=== PATIENT | male | born 1940 | race Caucasian/White ===

== ENCOUNTER 2017-11-22 10:32 | Outpatient (CLI) | payer MEDICARE ==
--- NOTE | 2017-11-22 11:38 | RAD ---
TWO LEFT HIP: History: Degenerative joint pain. Comparison: None. FINDINGS: No significant loss of joint space height. Contour of the femoral head is maintained. No fracture. Va scular calcification. FINDINGS: No significant degenerative change. POS: [facility]
--- NOTE | 2017-11-22 12:44 | RAD ---
TWO VIEWS RIGHT HIP: History: Degenerative joint pain. Comparison: None. FINDINGS: There is mild loss of joint space height. Mild osteophyte formation. No fracture. No malalignment. Va scular calcifications are noted. IMPRESSION: Mild degenerative change. POS: [facility]
--- NOTE | 2017-11-22 12:56 | RAD ---
CERVICAL SPINE THREE VIEWS: History: Pain, disc bulges. Comparison: None. FINDINGS: Lateral view of the cervical spine in the neutral position, flexion and extension are submitted for i nterpretation. The entire cervical spine is not assessed. The C7 vertebral body as well as the cervicothoracic junct ion cannot be adequately demonstrated. There is 1.9 mm of anterolisthesis of C4 upon C5. There is mil d degenerative disc disease at C3 upon C4 and C5 upon C6. Additionally, there is moderate to severe d egenerative change of C6 upon C7. No abnormal translation of motion upon extension or flexion. IMPRESSION: Multilevel degenerative change. POS: [facility]
== END 2017-11-22 10:33 | disposition home or self-care (01) ==
LOC: TBSIIMAG 10:32
PROVIDERS: ATTEND Neurological Surgery
DX: M47.22 Other spondylosis with radiculopathy, cervical region (principal); M25.559 Pain in unspecified hip; M16.11 Unilateral primary osteoarthritis, right hip
CPT/HCPCS: 72040

== ENCOUNTER 2017-11-30 08:04 | Outpatient (CLI) | payer MEDICARE ==
--- NOTE | 2017-11-30 12:18 | MRI ---
MRI LUMBAR SPINE NONCONTRAST: History: Back pain with right leg radiculopathy. FINDINGS: The conus medullaris has a normal appearance. Vertebral body heights are maintained. There is desicca tion of the intervertebral discs. T12-L1, L1-2: Osteophytosis involves each facet. There is mild bulging of the discs. No focal disc he rniation or nerve root compression. The thecal sac and neural foramina are patent. L2-3: Minimal degenerative retrolisthesis is present. Posterior disc bulge, along with facet joint hy pertrophy and ligamentous thickening result in mild stenosis of the central canal and each neural for amen. L3-4: There is disc space narrowing and minimal degenerative retrolisthesis. Discogenic endplate jesus ges are most pronounced at this level. Posterior disc bulge along with facet joint hypertrophy and li gamentous thickening result in severe stenosis of the central canal and moderate stenosis of each mae ral foramen. L4-5: There is disc space narrowing. Posterior disc bulge, along with facet joint hypertrophy and lig amentous thickening result in severe stenosis of the central canal. There is severe right and moderat e left foraminal stenosis. L5-S1: Mild disc bulge is present. The thecal sac is patent. Degenerative changes result in mild sten osis of each neural foramen. IMPRESSION: 1. Multilevel degenerative changes throughout the lumbar spine as detailed above, including central c anal and foraminal stenosis greatest at the L3-4 and L4-5 levels. POS: [facility]
== END 2017-11-30 08:05 | disposition home or self-care (01) ==
LOC: SCSMRI 08:04
PROVIDERS: ATTEND Neurological Surgery
DX: M47.26 Other spondylosis with radiculopathy, lumbar region (principal); M99.83 Other biomechanical lesions of lumbar region
CPT/HCPCS: 72148

== ENCOUNTER 2018-06-13 07:50 | Outpatient (CLI) | payer MEDICARE ==
--- NOTE | 2018-06-13 09:15 | RAD ---
CERVICAL SPINE 3 VIEWS: COMPARISON: 11/22/17. HISTORY: Cervical radiculopathy. Status post surgery. FINDINGS: There is no prevertebral soft tissue swelling. Predental space is normal. On the open-mouth project ion, odontoid process is obscured. Lateral masses of C1 and C2 articulate appropriately. On the AP projection, there are degenerative changes in the facets. There is interval placement of an anterior fusion plate with a transvertebral screw at C4, C5, and C6 . No perihardware lucency. Disk prosthesis of C4-C5 and C5-C6. The C4-C5 prosthesis at the anterio r margin of the adjacent vertebral bodies. Previously noted anterolisthesis of C4 upon C5 is less ev ident. Currently, there appears to be 1.4 mm anterolisthesis of C4 upon C5. IMPRESSION: Cervical fusion changes as above. POS: [facility]
== END 2018-06-13 07:51 | disposition home or self-care (01) ==
LOC: TBSIIMAG 07:50
PROVIDERS: ATTEND Neurological Surgery
DX: M54.12 Radiculopathy, cervical region (principal); Z98.1 Arthrodesis status
CPT/HCPCS: 72040

== ENCOUNTER 2018-06-28 12:55 | Outpatient (CLI) | payer MEDICARE ==
--- NOTE | 2018-06-28 15:09 | CT ---
CT LUMBAR SPINE: Technique: Multiple axial tomograms were obtained through the lumbar spine with multiplanar reconstru ctions. Indication: Chronic low back pain. FINDINGS: The lumbar vertebrae maintain height and alignment. Moderate degenerative changes are seen with spurr ing from all lumbar vertebrae. Degenerative disc changes are seen at all levels of the lumbar spine. Vacuum phenomenon present throughout levels of the lumbar spine. Degenerative plate changes are most severe at L3-4 and L4-5 levels. No evidence of spondylolisthesis or spondylolysis. Normal posterior listhesis at L3-4 noted. L1-2: Broad based disc bulge flattening the thecal sac. Facet hypertrophy. Mild central canal stenosi s. L2-3: Broad based disc bulge flattens the thecal sac. Facet and ligamentous hypertrophy is prominent. Moderate central canal stenosis is present at this level. The diffuse disc bulge encroaches into the foramina bilaterally. L3-4: Degenerative disc and endplate change as noted above. Disc bulge and posterior hypertrophic celia nges are present compressing the thecal sac. Facet and ligamentous hypertrophy is prominent. Moderate to severe central canal stenosis. Bilateral foraminal stenosis is present. L4-5: Diffuse disc bulge is present. Facet and ligamentous hypertrophy is prominent. Severe central c anal stenosis. Bilateral foraminal stenosis secondary to disc bulge and hypertrophic change. L5-S1: Mild broad based disc bulge abuts both traversing S1 nerve roots. Facet hypertrophy is promine nt. No significant central canal stenosis due to congenitially smaller thecal sac. Mild foraminal enc roachment due to disc bulge and hypertrophic change. IMPRESSION: 1. Central canal and foraminal stenosis seen at several levels as described above. POS: [facility]
== END 2018-06-28 12:56 | disposition home or self-care (01) ==
LOC: SCSCT 12:55
PROVIDERS: ATTEND Neurological Surgery
DX: M54.16 Radiculopathy, lumbar region (principal); M48.061 Spinal stenosis, lumbar region without neurogenic claudication; M99.83 Other biomechanical lesions of lumbar region
CPT/HCPCS: 72131

== ENCOUNTER 2022-06-28 10:16 | Outpatient (CLI) | payer MEDICARE | END 2022-06-28 10:17 | disposition home or self-care (01) | LOC: TBSIIMAG 10:16 | PROVIDERS: ATTEND Neurological Surgery | DX: M47.22 Other spondylosis with radiculopathy, cervical region (principal); M48.02 Spinal stenosis, cervical region; M48.03 Spinal stenosis, cervicothoracic region; M25.78 Osteophyte, vertebrae; Z98.1 Arthrodesis status | CPT/HCPCS: 72040; 72141 ==